=== PATIENT | female | born 1990 | race Two or more races ===

== ENCOUNTER 2017-03-07 15:01 | Inpatient (IN) | payer MEDICAID ==
[~2017-03-07] VITALS: Ht 154.9 cm; Wt 65.3 kg
[2017-03-07] MEDS ORDERED: SODIUM CHLORIDE 0.9% 1,000 ML IVB ONE (15:25)
[2017-03-07] MEDS ORDERED: MORPHINE SULFATE 4 MG/ML SYRG IV ONE (15:30)
[2017-03-07] MEDS ORDERED: ONDANSETRON HCL 4 MG/2 ML VIAL IV ONE (15:30)
[2017-03-07 15:43] LABS: Basophils # (auto) 0.1 uL; Basophils % (auto) 0.8 % (0.0-2.0); Eosinophils # (auto) 0.1 uL; Eosinophils % (auto) 1.2 % (0.0-7.0); Hematocrit 44.4 % (36.0-46.0); Hemoglobin 14.4 g/dL (12.2-16.2); Lymphocytes # (auto) 2.2 uL; Lymphocytes % (auto) 20.9 % (10.0-50.0); Mean Corpuscular Hemoglobin 29.4 pg (28.0-32.0); Mean Corpuscular Hgb Conc. 32.5 g/dL (32.0-36.0); Mean Corpuscular Volume 90.3 fL (80.0-100.0); Mean Platelet Volume 10.3 fL (7.4-10.4); Monocytes # (auto) 0.6 uL; Neutrophils # (auto) 7.6 uL; Neutrophils % (auto) 71.1 % (37.0-80.0); Platelet Count (auto) 329 10^3/uL (140-450); Red Cell Distribution Width 13.8 % (11.6-16.0); White Blood Cell 10.8 10^3/uL (4.4-10.8)
[2017-03-07 16:59] LABS: Albumin 3.8 g/dL (3.4-5.0); BUN/Creatinine Ratio 8.6; Bilirubin, Total 0.3 mg/dL (0.2-1.0); Calcium 8.7 mg/dL (8.5-10.1); Potassium 3.6 mmol/L (3.5-5.1); Total Protein 7.4 g/dL (6.4-8.2)
[2017-03-07] MEDS ORDERED: IOHEXOL 300 MG/ML 100ML BOTTLE IJ ONE (17:01)
[2017-03-07 18:15] LABS: Urine Bilirubin Negative (Negative); Urine Color Yellow (Yellow); Urine Glucose Normal (Normal); Urine Ketone TRACE (Negative); Urine Mucus FEW (None Seen); Urine Nitrite Negative (Negative); Urine RBC 1 /hpf (0 - 4); Urine Squamous Epithelial Cell FEW /hpf (<5); Urine Urobilinogen Normal (Negative)
[2017-03-07 18:16] LABS: Urine Blood 1+ /uL (Negative)
[2017-03-07] MEDS ORDERED: TEMAZEPAM 15 MG CAP PO PRN (19:15)
[2017-03-07] MEDS ORDERED: ACETAMINOPHEN 325 MG TAB PO PRN (19:15)
[2017-03-07] MEDS ORDERED: cefTRIAXone 1GM/50ML D5W 50 ML IV ONE (19:15)
[2017-03-07] MEDS: MULTIPLE VITAMIN TAB PO SCH (19:22)
[2017-03-07 20:15] VITALS: BP 112/67
[2017-03-07] MEDS: MORPHINE SULF INJ 2 MG/ML SYRINGE 1ML IV PRN (20:59)
[2017-03-07] MEDS: SODIUM CHLOR 0.9% PF (SALINE LOCK) 10ML VIAL IV SCH (22:06)
[2017-03-07] MEDS: HYDROCORTISONE ACET 25 MG RECTAL SUPP PR SCH (22:07)
[2017-03-08] VITALS (7 sets, daily range): BP systolic 85–111; BP diastolic 45–75
[2017-03-08] MEDS: HYDROcodone-ACET 5/325MG TAB PO PRN ×2 (04:46→11:19)
[2017-03-08] MEDS: SODIUM CHLOR 0.9% PF (SALINE LOCK) 10ML VIAL IV SCH ×3 (05:54→21:33)
[2017-03-08 06:42] LABS: Basophils # (auto) 0 uL; Basophils % (auto) 0.5 % (0.0-2.0); Eosinophils # (auto) 0.1 uL; Eosinophils % (auto) 1.2 % (0.0-7.0); Hematocrit 40.6 % (36.0-46.0); Hemoglobin 13.4 g/dL (12.2-16.2); Lymphocytes # (auto) 1.8 uL; Mean Corpuscular Hemoglobin 30.1 pg (28.0-32.0); Mean Corpuscular Hgb Conc. 33.2 g/dL (32.0-36.0); Mean Corpuscular Volume 90.8 fL (80.0-100.0); Mean Platelet Volume 10.7 fL (7.4-10.4); Monocytes # (auto) 0.5 uL; Monocytes % (auto) 6.2 % (0.0-12.0); Neutrophils # (auto) 5.6 uL; Neutrophils % (auto) 70.1 % (37.0-80.0); Platelet Count (auto) 250 10^3/uL (140-450); Red Cell Distribution Width 13.5 % (11.6-16.0); White Blood Cell 8.1 10^3/uL (4.4-10.8)
[2017-03-08 06:50] LABS: INR 1.04 (0.9-1.15); Prothrombin Time 11.2 sec (9.37-12.3)
[2017-03-08 07:06] LABS: Albumin 3.4 g/dL (3.4-5.0); BUN/Creatinine Ratio 9.5; Bilirubin, Total 0.4 mg/dL (0.2-1.0); Calcium 8.1 mg/dL (8.5-10.1); Potassium 3.9 mmol/L (3.5-5.1); Total Protein 6.6 g/dL (6.4-8.2)
[2017-03-08] MEDS ORDERED: cefTRIAXone 1GM/50ML D5W 50 ML IV SCH (09:00)
[2017-03-08] MEDS: HYDROCORTISONE ACET 25 MG RECTAL SUPP PR SCH ×2 (10:00→21:34)
[2017-03-08] MEDS: MULTIPLE VITAMIN TAB PO SCH (11:19)
[2017-03-08] MEDS: MORPHINE SULF INJ 2 MG/ML SYRINGE 1ML IV PRN ×2 (14:41→20:22)
[2017-03-08] MEDS: ONDANSETRON HCL 4 MG/2 ML VIAL IV PRN (14:41)
[2017-03-09] VITALS (7 sets, daily range): BP systolic 93–113; BP diastolic 52–68
[2017-03-09] MEDS: MORPHINE SULF INJ 2 MG/ML SYRINGE 1ML IV PRN ×3 (02:50→12:42)
[2017-03-09] MEDS: SODIUM CHLOR 0.9% PF (SALINE LOCK) 10ML VIAL IV SCH ×3 (06:23→23:16)
[2017-03-09] MEDS: ONDANSETRON HCL 4 MG/2 ML VIAL IV PRN ×2 (08:04→12:41)
[2017-03-09] MEDS: MULTIPLE VITAMIN TAB PO SCH (09:46)
[2017-03-09] MEDS: HYDROCORTISONE ACET 25 MG RECTAL SUPP PR SCH ×2 (09:47→22:00)
[2017-03-09] MEDS ORDERED: GOLYTELY 4L KIT PO ONE (13:45)
[2017-03-10] MEDS: HYDROcodone-ACET 5/325MG TAB PO PRN (00:41)
[2017-03-10] MEDS: ONDANSETRON HCL 4 MG/2 ML VIAL IV PRN ×2 (00:41→09:44)
[2017-03-10 05:30] VITALS: BP 98/55
[2017-03-10] MEDS: SODIUM CHLOR 0.9% PF (SALINE LOCK) 10ML VIAL IV SCH ×3 (06:22→22:14)
[2017-03-10] MEDS ORDERED: diphenhdrAMINE HCL 50 MG/1 ML VL ONE (08:18)
[2017-03-10] MEDS ORDERED: SODIUM CHLORIDE LOCK 10 ML ONE (08:23)
[2017-03-10 09:00] VITALS: BP 102/48
[2017-03-10] MEDS: MULTIPLE VITAMIN TAB PO SCH (10:00)
[2017-03-10] MEDS: HYDROCORTISONE ACET 25 MG RECTAL SUPP PR SCH ×2 (10:00→22:00)
[2017-03-10] MEDS: MORPHINE SULF INJ 2 MG/ML SYRINGE 1ML IV PRN ×2 (11:45→20:44)
[2017-03-10 13:00] VITALS: BP 107/42
[2017-03-10] MEDS: MIDAZOLAM HCL 5 MG/ML-1ML VIAL ONE ×4 (13:16→13:26)
[2017-03-10] MEDS: fentaNYL CITRATE 100 MCG/2 ML VL ONE ×3 (13:16→13:23)
[2017-03-10 17:00] VITALS: BP 103/53
[2017-03-10 19:30] VITALS: BP 106/71
[2017-03-10 22:00] VITALS: BP 96/61
[2017-03-11] MEDS: MORPHINE SULF INJ 2 MG/ML SYRINGE 1ML IV PRN (03:06)
[2017-03-11] MEDS: SODIUM CHLOR 0.9% PF (SALINE LOCK) 10ML VIAL IV SCH ×3 (04:43→21:25)
[2017-03-11 05:30] VITALS: BP 91/47
[2017-03-11 09:00] VITALS: BP 98/64
[2017-03-11] MEDS: HYDROCORTISONE ACET 25 MG RECTAL SUPP PR SCH ×2 (09:40→21:25)
[2017-03-11] MEDS: MULTIPLE VITAMIN TAB PO SCH (09:40)
[2017-03-11] MEDS ORDERED: MIDAZOLAM HCL 1MG/1ML-2 ML VIAL ONE (10:54)
[2017-03-11] MEDS ORDERED: MEPERIDINE HCL (50 MG/ML) 1 ML VIAL ONE (10:54)
[2017-03-11] MEDS ORDERED: fentaNYL CITRATE 100 MCG/2 ML VL ONE (10:54)
[2017-03-11] MEDS ORDERED: KETOROLAC TROMETH 30 MG/ML 1ML VIAL IV ONE ×2 (10:59→11:00)
[2017-03-11] MEDS ORDERED: LABETALOL HCL 5 MG/ML 4ML SYRINGE IV PRN (11:00)
[2017-03-11] MEDS ORDERED: MORPHINE SULF INJ 2 MG/ML SYRINGE 1ML IV PRN (11:00)
[2017-03-11] MEDS ORDERED: HYDROmorphone HCL 2 MG/ML VL IV PRN (11:00)
[2017-03-11] MEDS ORDERED: ONDANSETRON HCL 4 MG/2 ML VIAL IV ONE (11:00)
[2017-03-11] MEDS ORDERED: ePHEDrine SULFATE 50 MG/ML AMP IV PRN (11:00)
[2017-03-11] MEDS ORDERED: DEXAMETHASONE SOD PHOS 10MG/1ML VIAL INJ ONE (11:15)
[2017-03-11] MEDS ORDERED: PROPOFOL 10 MG/ML 20 ML IV ONE (11:16)
[2017-03-11] MEDS ORDERED: ONDANSETRON HCL 4 MG/2 ML VIAL ONE (11:30)
[2017-03-11] MEDS ORDERED: LIDOCAINE W/ EPINEPHRINE 1 % INJ 30ML ONE (11:33)
[2017-03-11] MEDS ORDERED: GELATIN 1 SPONGE SIZE 100 TOP ONE (11:45)
[2017-03-11] MEDS ORDERED: LIDOCAINE HCL 2% TOP JELLY 5ML TOP ONE (11:46)
[2017-03-11 13:00] VITALS: BP 104/62
[2017-03-11] MEDS: HYDROmorphone HCL 2 MG/ML VL IV PRN ×2 (15:13→20:12)
[2017-03-11 17:00] VITALS: BP 105/56
[2017-03-11 22:00] VITALS: BP 100/60
[2017-03-12] MEDS: ONDANSETRON HCL 4 MG/2 ML VIAL IV PRN ×5 (00:33→20:52)
[2017-03-12] MEDS: HYDROcodone-ACET 5/325MG TAB PO PRN (00:33)
[2017-03-12 05:19] VITALS: BP 94/55
[2017-03-12] MEDS: SODIUM CHLOR 0.9% PF (SALINE LOCK) 10ML VIAL IV SCH ×3 (05:42→21:50)
[2017-03-12 06:25] LABS: Basophils # (auto) 0 uL; Basophils % (auto) 0.3 % (0.0-2.0); Eosinophils # (auto) 0 uL; Eosinophils % (auto) 0.2 % (0.0-7.0); Hemoglobin 14.3 g/dL (12.2-16.2); Lymphocytes # (auto) 1.3 uL; Lymphocytes % (auto) 11.2 % (10.0-50.0); Mean Corpuscular Hemoglobin 29.9 pg (28.0-32.0); Mean Corpuscular Hgb Conc. 33.3 g/dL (32.0-36.0); Mean Corpuscular Volume 89.6 fL (80.0-100.0); Mean Platelet Volume 10.5 fL (7.4-10.4); Monocytes # (auto) 0.7 uL; Neutrophils # (auto) 9.6 uL; Neutrophils % (auto) 82.3 % (37.0-80.0); Platelet Count (auto) 357 10^3/uL (140-450); Red Cell Distribution Width 12.9 % (11.6-16.0); White Blood Cell 11.7 10^3/uL (4.4-10.8)
[2017-03-12 06:38] LABS: BUN/Creatinine Ratio 15.5; Calcium 8.8 mg/dL (8.5-10.1); Potassium 4.6 mmol/L (3.5-5.1)
[2017-03-12] MEDS: HYDROmorphone HCL 2 MG/ML VL IV PRN ×4 (08:38→20:52)
[2017-03-12 09:00] VITALS: BP 100/54
[2017-03-12] MEDS: MULTIPLE VITAMIN TAB PO SCH (09:56)
[2017-03-12] MEDS: HYDROCORTISONE ACET 25 MG RECTAL SUPP PR SCH ×3 (10:00→21:51)
[2017-03-12] MEDS ORDERED: DOCUSATE SOD 100 MG CAP PO ONE (11:15)
[2017-03-12 13:00] VITALS: BP 91/49
[2017-03-12 16:21] VITALS: BP 119/44
[2017-03-12 20:00] VITALS: BP 90/33
[2017-03-12] MEDS: DOCUSATE SOD 100 MG CAP PO SCH (21:50)
[2017-03-12 22:00] VITALS: BP 90/33
[2017-03-13] VITALS (7 sets, daily range): BP systolic 89–106; BP diastolic 43–54
[2017-03-13] MEDS: HYDROCORTISONE ACET 25 MG RECTAL SUPP PR SCH ×2 (00:35→22:03)
[2017-03-13] MEDS: HYDROmorphone HCL 2 MG/ML VL IV PRN ×4 (01:04→16:08)
[2017-03-13] MEDS: ONDANSETRON HCL 4 MG/2 ML VIAL IV PRN ×4 (01:05→16:08)
[2017-03-13] MEDS: SODIUM CHLOR 0.9% PF (SALINE LOCK) 10ML VIAL IV SCH ×3 (05:55→22:02)
[2017-03-13] MEDS: DOCUSATE SOD 100 MG CAP PO SCH ×2 (10:42→22:02)
[2017-03-13] MEDS: MULTIPLE VITAMIN TAB PO SCH (10:43)
[2017-03-13] MEDS: HYDROcodone-ACET 5/325MG TAB PO PRN (20:49)
[2017-03-14] VITALS (7 sets, daily range): BP systolic 93–111; BP diastolic 44–68
[2017-03-14] MEDS: HYDROmorphone HCL 2 MG/ML VL IV PRN ×4 (01:02→20:47)
[2017-03-14] MEDS: ONDANSETRON HCL 4 MG/2 ML VIAL IV PRN ×5 (01:06→20:47)
[2017-03-14 05:37] LABS: Basophils # (auto) 0 uL; Basophils % (auto) 0.6 % (0.0-2.0); Eosinophils # (auto) 0.2 uL; Eosinophils % (auto) 2.2 % (0.0-7.0); Hematocrit 41.5 % (36.0-46.0); Hemoglobin 13.8 g/dL (12.2-16.2); Lymphocytes # (auto) 2.2 uL; Mean Corpuscular Hemoglobin 30.1 pg (28.0-32.0); Mean Corpuscular Hgb Conc. 33.2 g/dL (32.0-36.0); Mean Corpuscular Volume 90.7 fL (80.0-100.0); Mean Platelet Volume 10.3 fL (7.4-10.4); Monocytes # (auto) 0.7 uL; Monocytes % (auto) 9.7 % (0.0-12.0); Neutrophils # (auto) 4.1 uL; Neutrophils % (auto) 57.5 % (37.0-80.0); Platelet Count (auto) 299 10^3/uL (140-450); Red Cell Distribution Width 13.2 % (11.6-16.0); White Blood Cell 7.2 10^3/uL (4.4-10.8)
[2017-03-14] MEDS: SODIUM CHLOR 0.9% PF (SALINE LOCK) 10ML VIAL IV SCH ×3 (05:39→22:51)
[2017-03-14 06:02] LABS: Albumin 3.5 g/dL (3.4-5.0); BUN/Creatinine Ratio 16.7; Bilirubin, Total 0.4 mg/dL (0.2-1.0); Calcium 8.8 mg/dL (8.5-10.1); Total Protein 6.6 g/dL (6.4-8.2)
[2017-03-14] MEDS: MULTIPLE VITAMIN TAB PO SCH (09:42)
[2017-03-14] MEDS: HYDROCORTISONE ACET 25 MG RECTAL SUPP PR SCH ×2 (09:42→22:00)
[2017-03-14] MEDS: DOCUSATE SOD 100 MG CAP PO SCH ×2 (09:42→22:00)
[2017-03-15] MEDS: ONDANSETRON HCL 4 MG/2 ML VIAL IV PRN ×2 (01:29→06:55)
[2017-03-15] MEDS: HYDROmorphone HCL 2 MG/ML VL IV PRN ×2 (01:29→06:54)
[2017-03-15 05:45] VITALS: BP 96/64
[2017-03-15 06:21] LABS: Basophils # (auto) 0 uL; Basophils % (auto) 0.4 % (0.0-2.0); Eosinophils # (auto) 0.2 uL; Eosinophils % (auto) 1.7 % (0.0-7.0); Hemoglobin 13.9 g/dL (12.2-16.2); Lymphocytes # (auto) 2.2 uL; Mean Corpuscular Hemoglobin 30.3 pg (28.0-32.0); Mean Corpuscular Hgb Conc. 33.9 g/dL (32.0-36.0); Mean Corpuscular Volume 89.2 fL (80.0-100.0); Mean Platelet Volume 9.6 fL (7.4-10.4); Monocytes # (auto) 0.9 uL; Monocytes % (auto) 8.6 % (0.0-12.0); Neutrophils # (auto) 6.7 uL; Neutrophils % (auto) 67.3 % (37.0-80.0); Platelet Count (auto) 325 10^3/uL (140-450); Red Cell Distribution Width 12.8 % (11.6-16.0)
[2017-03-15] MEDS: SODIUM CHLOR 0.9% PF (SALINE LOCK) 10ML VIAL IV SCH (06:28)
[2017-03-15 06:47] LABS: Albumin 3.5 g/dL (3.4-5.0); BUN/Creatinine Ratio 16.2; Calcium 8.5 mg/dL (8.5-10.1)
[2017-03-15 07:00] LABS: Bilirubin, Total 0.4 mg/dL (0.2-1.0); Total Protein 6.7 g/dL (6.4-8.2)
[2017-03-15 09:00] VITALS: BP 105/54
[2017-03-15] MEDS: DOCUSATE SOD 100 MG CAP PO SCH (09:52)
[2017-03-15] MEDS: HYDROCORTISONE ACET 25 MG RECTAL SUPP PR SCH (09:52)
[2017-03-15] MEDS: HYDROcodone-ACET 5/325MG TAB PO PRN (09:52)
[2017-03-15] MEDS: MULTIPLE VITAMIN TAB PO SCH (09:52)
[2017-03-15] MEDS ORDERED: NOR5T PO (10:01)
[2017-03-15] MEDS ORDERED: ONDA4TAB5 PO (10:29)
[2017-03-15 12:19] VITALS: BP 105/54
== END 2017-03-15 13:20 | disposition home or self-care (01) | DRG 349 ==
LOC: ER 15:14 → TELE 15:15 → TELE-WESTW 19:52 → WEST WING 20:20
PROVIDERS: ADMIT Internal Medicine; ATTEND Internal Medicine
PROC: 0DJD8ZZ Inspection of Lower Intestinal Tract, Via Natural or Artificial Opening Endoscopic (ICD-10-PCS; principal; 2017-03-10 13:13)
PROC: 06BY4ZC Excision of Hemorrhoidal Plexus, Percutaneous Endoscopic Approach (ICD-10-PCS; 2017-03-11)
DX: K64.4 Residual hemorrhoidal skin tags (principal); Z90.89 Acquired absence of other organs; K62.9 Disease of anus and rectum, unspecified
CPT/HCPCS: 36415; 45378; 74177; 80048; 80053; 81001; 84702; 85025; 85610; 87086; 94761; 96361; 96374; 96375; J0696; J1100; J1885; J2250; J2405; J2704